=== PATIENT | male | born 1945 | race Caucasian/White ===

== ENCOUNTER → 2016-09-01 | Outpatient (CLI) | payer MEDICARE ==
[~2016-09-01] MED LIST: ASPIRIN ADULT L81 M1 PO; GLUCOPHAGE1000 MG PO; GLYBURIDE5 MG PO; Imdur SA60 MG PO; OMEGA 3 PO; PRAVASTATIN SOD40 MG PO; VITAMIN B122500 MCG SL; ZESTRIL20 MG PO
--- NOTE | ~2016-09-01 | ST ---
[place], [place] EXERCISE STRESS TEST REPORT NAME: SOHAM STOVALL UNIT #: [id number] ROOM: DOCTOR: SOHAM CHOU MD BIRTHDATE: [birth year] DOS: 09/01/2016 PHARMACOLOGIC STRESS TEST REFERRED BY: Dr. Gilma Herrera INDICATION: Chest discomfort. PROCEDURE: The patient was given a rapid infusion of regadenoson 0.4 mg intravenously followed by a saline flush. He developed some dyspnea and dizziness, but had no chest pain. The resting electrocardiogram showed sinus rhythm and was a normal tracing. No changes occurred in the ST segments with the infusion. His resting heart rate of 60 scott to 83. The resting blood pressure of 150/84 fell to 146/82. Symptoms resolved spontaneously. 40 seconds after the infusion of regadenoson, he was given radionuclide intravenously. IMPRESSION: 1. Well tolerated infusion of regadenoson. 2. Radionuclide administered. Please see the separately dictated imaging report for further details of the patient's stress test results. SOHAM CHOU MD CM:STRESS:EXERCISE STRESS TEST REPORT [id number] SOHAM CHOU MD
== END | disposition home or self-care (01) ==
LOC: CARD 01:19
DX: I20.9 Angina pectoris, unspecified (principal); Z79.899 Other long term (current) drug therapy; I34.0 Nonrheumatic mitral (valve) insufficiency; I35.1 Nonrheumatic aortic (valve) insufficiency; I07.1 Rheumatic tricuspid insufficiency